=== PATIENT | female | born 1965 | race Caucasian/White ===

== ENCOUNTER 2018-09-09 04:55 | Emergency (ER) | payer OTHER ==
[~2018-09-09] VITALS: Ht 160 cm; Wt 62.3 kg
[~2018-09-09 04:55] MED LIST: ASPIRIN EC325 MG PO
[2018-09-09 06:09] LABS: HEMATOCRIT 39.6 % (37.0-47.0); HEMOGLOBIN 12.3 gm/dL (12.0-15.0); MCH 32.3 pg (26.0-34.0); MCHC 31.1 g/dL (28.0-37.0); MCV 103.6 fL (80.0-100.0); MPV 9.9 fl. (7.2-11.1); NUCLEATED RBCS 2 /100WBC; PLATELET COUNT* 96 thou/uL (150-400); RBC 3.82 mil/uL (4.20-5.00); RDW-CV 14.5 % (10.5-14.5); WBC 6.1 thou/uL (4.0-11.0)
[2018-09-09 06:19] LABS: PROTIME 30.1 Seconds (9.20-11.50)
[2018-09-09 06:25] VITALS: BP 000/000
[2018-09-09 06:39] LABS: ALBUMIN 1.9 g/dL (3.4-5.0); CALCIUM 9.3 mg/dL (8.5-10.1); CREATININE 2.3 mg/dL (0.6-1.3); POTASSIUM 4.7 mmol/L (3.5-5.1); TOTAL BILIRUBIN 0.6 mg/dL (<0.1-1.0); TOTAL PROTEIN 4.1 g/dL (6.4-8.2)
[2018-09-09 06:42] LABS: ABSOLUTE EOSINOPHILS 0.1 thou/uL (0.0-0.7); ABSOLUTE LYMPHOCYTES 3.6 thou/uL (0.8-5.3); ABSOLUTE MONOCYTES 1.3 thou/uL (0.0-1.2); ABSOLUTE NEUTROPHILS 1.1 thou/uL (1.6-8.1); ATYPICAL LYMPHS 13 %; LARGE PLATELETS RARE; MYELOCYTES 6 %; PLATELET ESTIMATE DECREASED; POLYCHROMASIA 1+
[2018-09-09 06:43] LABS: ANISOCYTOSIS 1+; POIKILOCYTOSIS 1+
--- NOTE | 2018-09-09 12:57 | EKG ---
[place] [address] ELECTROCARDIOGRAM REPORT Name: KENDALL VELEZ Room: [facility]#: [id number] Admission: 09/09/18 Attend Phys: Discharge: 09/09/18 Date of : 65 Report #: [id number] THIS REPORT FOR: //name// [facility] ED Test Date: 2018-09-09 Test Time: 05:19:13 Pat Name: KENDALL VELEZ Department: Room: Gender: F [employer]: : 1965 Requested By: Antonette Alonso Order Number: [id number] Dajuan MD: Elan Merino Measurements Intervals [facility] Rate: 109 P: MI: QRS: -150 QRSD: 159 T: 49 QT: 393 QTc: 530 Interpretive Statements Junctional tachycardia Right bundle branch block Compared to ECG 10/30/2014 14:24:40 Junctional tachycardia now present Right bundle-branch block now present Sinus rhythm no longer present Electronically Signed On 09-09-2018 12:57:36 REST ROOM MAID by Elan Merino [email or web address] <ELECTRONICALLY SIGNED> By: Elan Merino MD, [facility] 09/09/18 [id number] Elan Merino MD, FAC /EPI
== END 2018-09-09 12:18 ==
LOC: M.ERS 04:55
PROVIDERS: Emergency Medicine
DX: I46.9 Cardiac arrest, cause unspecified (principal); Z90.49 Acquired absence of other specified parts of digestive tract; Z88.0 Allergy status to penicillin; Z88.1 Allergy status to other antibiotic agents; Z88.8 Allergy status to other drugs, medicaments and biological substances